=== PATIENT | male | born 1945 | race Caucasian/White ===

== ENCOUNTER 2017-07-19 17:53 | Inpatient (IN) | payer MEDICARE, BC ==
[~2017-07-19] VITALS: Ht 188 cm; Wt 93.2 kg
[2017-07-19] MEDS ORDERED: amiodarone 150mg/dext, iso-os 100 ML IV ONE (18:00)
[2017-07-19] MEDS ORDERED: LORazepam 2 mg/ml vial IV ONE (18:25)
[2017-07-19 18:38] LABS: BASOPHILS % (AUTO) 0.1 % (0-1); EOSINOPHILS # (AUTO) 0.1 X10'3 (0-0.9); EOSINOPHILS % (AUTO) 1.7 % (0-6); HEMATOCRIT 32.5 % (42.0-52.0); HEMOGLOBIN 11.1 g/dl (14.0-17.9); LYMPHOCYTES # (AUTO) 0.3 X10'3 (1.1-4.8); LYMPHOCYTES % (AUTO) 3.7 % (21-51); MEAN CORPUSCULAR HEMOGLOBIN 32.9 PG (27.0-31.0); MEAN CORPUSCULAR VOLUME 96.5 FL (78-98); MEAN PLATELET VOLUME 8.9 FL (7.4-10.4); MONOCYTES # (AUTO) 0.6 X10'3 (0-0.9); MONOCYTES % (AUTO) 6.9 % (2-12); NEUTROPHILS # (AUTO) 7.8 X10'3 (1.8-7.7); NEUTROPHILS % (AUTO) 87.6 % (42-75); PLATELET COUNT 223 X10'3 (140-440); RED BLOOD COUNT 3.36 X10'6 (4.70-6.10); RED CELL DISTRIBUTION WIDTH 15.8 % (11.5-14.5); WHITE BLOOD COUNT 8.9 X10'3 (4.5-11.0)
[2017-07-19] MEDS: amiodarone/D5 450MG/250ML BAG 250 ML IV SCH (18:43)
[2017-07-19 19:03] LABS: ALANINE AMINOTRANSFERASE 85 U/L (12-78); ALBUMIN 2.1 G/DL (3.4-5.0); ALBUMIN/GLOBULIN RATIO 0.5 (1.1-1.5); ALKALINE PHOSPHATASE 95 IU/L (46-116); ANION GAP 12 (8-16); ASPARTATE AMINO TRANSFERASE 83 U/L (10-37); BILIRUBIN,TOTAL 0.5 MG/DL (0.1-1.0); BLOOD UREA NITROGEN 66 MG/DL (7-18); BUN/CREATININE RATIO 33.3 (5.4-32.0); CALCIUM 7.7 MG/DL (8.5-10.1); CHLORIDE 101 MMOL/L (99-107); CREATINE KINASE 128 U/L (39-308); CREATININE 1.98 MG/DL (0.60-1.10); GLUCOSE 164 MG/DL (70-104); SODIUM 138 MMOL/L (135-145); TOTAL CARBON DIOXIDE 24.9 MMOL/L (24-32); TOTAL PROTEIN 6.2 G/DL (6.4-8.2); eGFR 33 ML/MIN
[2017-07-19 19:06] LABS: POTASSIUM 2.6 MMOL/L (3.5-5.1)
[2017-07-19] MEDS ORDERED: folic acid 1mg/0.2ml inj IV ONE (19:10)
[2017-07-19] MEDS ORDERED: potassium Cl oral solution 20 MEQ/15 ML PO ONE (19:10)
[2017-07-19] MEDS ORDERED: thiamine 100mg/ml 2ml inj. IV ONE (19:10)
[2017-07-19] MEDS ORDERED: digoxin 250mcg/ml 2ml ampule IV ONE (19:15)
[2017-07-19] MEDS ORDERED: mag hydrox/Alum hydrox/simeth 30ml oral suspension PO PRN (19:20)
[2017-07-19] MEDS ORDERED: acetaminophen 325mg tablet PO PRN (19:20)
[2017-07-19] MEDS ORDERED: ondansetron/PF 4mg/2ml inj IV PRN (19:20)
[2017-07-19] MEDS ORDERED: magnesium hydroxide 30ml (MOM) UD suspension PO PRN (19:20)
[2017-07-19] MEDS ORDERED: magnesium 2GM in 50ml NS 50 ML IV PRN (19:25)
[2017-07-19] MEDS ORDERED: potassium Cl 20 mEq SR tablet PO PRN (19:25)
[2017-07-19] MEDS ORDERED: potassium Cl 40MEQ/NS 500ml 500 ML IV PRN (19:25)
[2017-07-19 19:42] LABS: HEMOGLOBIN A1C 6.4 % (4.5-6.2)
[2017-07-19 20:36] LABS: MAGNESIUM 1.7 MG/DL (1.5-2.4)
[2017-07-19] MEDS ORDERED: magnesium 2GM in 50ml NS 50 ML IV ONE (20:55)
[2017-07-19] MEDS: potassium Cl 20mEq in NS 1,000 ML IV SCH (21:01)
[2017-07-19] MEDS: heparin, porcine 5000 units/ml vial SQ SCH (21:04)
[2017-07-20] VITALS (15 sets, daily range): BP systolic 104–152; BP diastolic 56–91
[2017-07-20] MEDS: amiodarone/D5 450MG/250ML BAG 250 ML IV SCH ×3 (00:53→19:11)
[2017-07-20] MEDS: potassium Cl 20 mEq SR tablet PO PRN ×4 (02:01→17:29)
[2017-07-20 06:11] LABS: BASOPHILS % (AUTO) 0 % (0-1); EOSINOPHILS % (AUTO) 0.1 % (0-6); HEMATOCRIT 33.6 % (42.0-52.0); HEMOGLOBIN 11.7 g/dl (14.0-17.9); LYMPHOCYTES # (AUTO) 0.1 X10'3 (1.1-4.8); LYMPHOCYTES % (AUTO) 1.1 % (21-51); MEAN CORPUSCULAR HEMOGLOBIN 33.6 PG (27.0-31.0); MEAN CORPUSCULAR HGB CONC 34.9 % (33.0-36.5); MEAN CORPUSCULAR VOLUME 96.3 FL (78-98); MEAN PLATELET VOLUME 9.5 FL (7.4-10.4); MONOCYTES # (AUTO) 0.2 X10'3 (0-0.9); MONOCYTES % (AUTO) 1.4 % (2-12); NEUTROPHILS # (AUTO) 12.3 X10'3 (1.8-7.7); NEUTROPHILS % (AUTO) 97.4 % (42-75); PLATELET COUNT 201 X10'3 (140-440); RED BLOOD COUNT 3.49 X10'6 (4.70-6.10); RED CELL DISTRIBUTION WIDTH 15.6 % (11.5-14.5); WHITE BLOOD COUNT 12.6 X10'3 (4.5-11.0)
[2017-07-20 06:22] LABS: ALANINE AMINOTRANSFERASE 81 U/L (12-78); ALBUMIN 2.1 G/DL (3.4-5.0); ALBUMIN/GLOBULIN RATIO 0.5 (1.1-1.5); ALKALINE PHOSPHATASE 116 IU/L (46-116); ANION GAP 12 (8-16); ASPARTATE AMINO TRANSFERASE 85 U/L (10-37); BILIRUBIN,TOTAL 0.6 MG/DL (0.1-1.0); BLOOD UREA NITROGEN 56 MG/DL (7-18); BUN/CREATININE RATIO 32.9 (5.4-32.0); CALCIUM 8.1 MG/DL (8.5-10.1); CHLORIDE 104 MMOL/L (99-107); CHOL/HDL RATIO 7.9 (0.00-4.99); CHOLESTEROL 79 MG/DL (0-200); GLUCOSE 157 MG/DL (70-104); HDL CHOLESTEROL 10 MG/DL (35-60); LDL CHOLESTEROL 51 MG/DL (50-100); MAGNESIUM 1.9 MG/DL (1.5-2.4); SODIUM 139 MMOL/L (135-145); TOTAL CARBON DIOXIDE 22.7 MMOL/L (24-32); TOTAL PROTEIN 6.4 G/DL (6.4-8.2); TRIGLYCERIDES 103 MG/DL (20-135); eGFR 40 ML/MIN
[2017-07-20 06:45] LABS: POTASSIUM 2.9 MMOL/L (3.5-5.1)
[2017-07-20 06:47] LABS: TOTAL CELLS COUNTED 100
[2017-07-20 06:48] LABS: BANDS% (MANUAL) 5 % (0-10); ELLIPTOCYTES FEW; LYMPHOCYTES % (MANUAL) 1 % (21-51); MONOCYTES % (MANUAL) 1 % (2-12); NEUTROPHILS % (MANUAL) 93 % (42-75); PLATELET ESTIMATE NORMAL
[2017-07-20 06:49] LABS: BURR CELLS 1+; TOXIC GRANULATION 2+; TOXIC VACUOLATION FEW
[2017-07-20 06:50] LABS: LARGE PLATELETS FEW
[2017-07-20] MEDS ORDERED: UNABLE TO OBTAIN (07:49)
[2017-07-20] MEDS: heparin, porcine 5000 units/ml vial SQ SCH ×2 (08:39→19:15)
[2017-07-20] MEDS: potassium Cl 20mEq in NS 1,000 ML IV SCH ×3 (09:00→23:01)
[2017-07-20] MEDS ORDERED: HYDR25TA4 PO (10:35)
[2017-07-20] MEDS ORDERED: LISI40TA4 PO (10:35)
[2017-07-20] MEDS ORDERED: ASPI81TA52 PO (10:35)
[2017-07-20] MEDS ORDERED: ATOR-2 PO (10:35)
[2017-07-20] MEDS ORDERED: METO25TA6 PO (10:35)
[2017-07-20] MEDS: aspirin 81mg tablet.DR PO SCH (12:57)
[2017-07-20] MEDS ORDERED: metoprolol tartrate 25mg tablet PO ONE (16:10)
[2017-07-20] MEDS ORDERED: magnesium 4gm in 100ml NS 100 ML IV PRN (17:50)
[2017-07-20] MEDS ORDERED: potassium Cl 40MEQ/NS 500ml 500 ML IV PRN ×2 (17:50)
[2017-07-20] MEDS ORDERED: magnesium Cl slow-release 64mg tablet PO PRN (17:50)
[2017-07-20] MEDS ORDERED: potassium Cl 20 mEq SR tablet PO PRN ×2 (17:50)
[2017-07-20] MEDS ORDERED: magnesium 2GM in 50ml NS 50 ML IV PRN (17:50)
[2017-07-20] MEDS: lisinopril 20mg tablet PO SCH (19:12)
[2017-07-20] MEDS: metoprolol tartrate 25mg tablet PO SCH (19:12)
[2017-07-20] MEDS ORDERED: metoprolol tartrate 25mg tablet PO SCH (20:00)
[2017-07-21] VITALS (10 sets, daily range): BP systolic 113–154; BP diastolic 58–109
[2017-07-21 05:17] LABS: BASOPHILS % (AUTO) 0.1 % (0-1); EOSINOPHILS # (AUTO) 0.2 X10'3 (0-0.9); EOSINOPHILS % (AUTO) 2.4 % (0-6); HEMATOCRIT 31.9 % (42.0-52.0); HEMOGLOBIN 10.8 g/dl (14.0-17.9); LYMPHOCYTES # (AUTO) 0.5 X10'3 (1.1-4.8); LYMPHOCYTES % (AUTO) 4.7 % (21-51); MEAN CORPUSCULAR HEMOGLOBIN 32.9 PG (27.0-31.0); MEAN CORPUSCULAR HGB CONC 33.8 % (33.0-36.5); MEAN CORPUSCULAR VOLUME 97.3 FL (78-98); MEAN PLATELET VOLUME 9.2 FL (7.4-10.4); MONOCYTES # (AUTO) 0.6 X10'3 (0-0.9); NEUTROPHILS # (AUTO) 8.7 X10'3 (1.8-7.7); NEUTROPHILS % (AUTO) 86.8 % (42-75); PLATELET COUNT 207 X10'3 (140-440); RED BLOOD COUNT 3.28 X10'6 (4.70-6.10); RED CELL DISTRIBUTION WIDTH 16.2 % (11.5-14.5)
[2017-07-21 05:41] LABS: ALANINE AMINOTRANSFERASE 87 U/L (12-78); ALBUMIN/GLOBULIN RATIO 0.5 (1.1-1.5); ALKALINE PHOSPHATASE 101 IU/L (46-116); ANION GAP 8 (8-16); ASPARTATE AMINO TRANSFERASE 75 U/L (10-37); BILIRUBIN,TOTAL 0.6 MG/DL (0.1-1.0); BLOOD UREA NITROGEN 42 MG/DL (7-18); BUN/CREATININE RATIO 32.3 (5.4-32.0); CALCIUM 7.3 MG/DL (8.5-10.1); CHLORIDE 106 MMOL/L (99-107); GLUCOSE 152 MG/DL (70-104); MAGNESIUM 1.8 MG/DL (1.5-2.4); POTASSIUM 4.1 MMOL/L (3.5-5.1); SODIUM 139 MMOL/L (135-145); TOTAL CARBON DIOXIDE 24.9 MMOL/L (24-32); eGFR 54 ML/MIN
[2017-07-21] MEDS: K and/or MAG REPLACEMENT MC SCH (06:56)
[2017-07-21] MEDS: aspirin 81mg tablet.DR PO SCH (09:21)
[2017-07-21] MEDS: atorvastatin 20mg tablet PO SCH (09:22)
[2017-07-21] MEDS: lisinopril 20mg tablet PO SCH ×2 (09:23→19:52)
[2017-07-21] MEDS: metoprolol tartrate 25mg tablet PO SCH ×2 (09:23→19:52)
[2017-07-21] MEDS: heparin, porcine 5000 units/ml vial SQ SCH ×2 (09:24→19:54)
[2017-07-21] MEDS: potassium Cl 20mEq in NS 1,000 ML IV SCH ×2 (09:29→19:54)
[2017-07-21] MEDS: amiodarone/D5 450MG/250ML BAG 250 ML IV SCH (09:30)
[2017-07-21] MEDS ORDERED: pneumococcal 23-VAL P-sac vacc 25 mcg/0.5ml vial IMVAC ONE (10:00)
[2017-07-22 03:00] VITALS: BP 124/84
[2017-07-22 05:16] LABS: BASOPHILS % (AUTO) 0 % (0-1); EOSINOPHILS # (AUTO) 0.2 X10'3 (0-0.9); EOSINOPHILS % (AUTO) 2.5 % (0-6); HEMATOCRIT 32.8 % (42.0-52.0); HEMOGLOBIN 11.3 g/dl (14.0-17.9); LYMPHOCYTES # (AUTO) 0.5 X10'3 (1.1-4.8); LYMPHOCYTES % (AUTO) 5.5 % (21-51); MEAN CORPUSCULAR HEMOGLOBIN 33.3 PG (27.0-31.0); MEAN CORPUSCULAR HGB CONC 34.5 % (33.0-36.5); MEAN CORPUSCULAR VOLUME 96.5 FL (78-98); MEAN PLATELET VOLUME 8.9 FL (7.4-10.4); MONOCYTES # (AUTO) 0.5 X10'3 (0-0.9); MONOCYTES % (AUTO) 5.2 % (2-12); NEUTROPHILS % (AUTO) 86.8 % (42-75); PLATELET COUNT 230 X10'3 (140-440); RED CELL DISTRIBUTION WIDTH 15.9 % (11.5-14.5); WHITE BLOOD COUNT 9.2 X10'3 (4.5-11.0)
[2017-07-22 05:39] LABS: ALANINE AMINOTRANSFERASE 87 U/L (12-78); ALBUMIN/GLOBULIN RATIO 0.5 (1.1-1.5); ALKALINE PHOSPHATASE 127 IU/L (46-116); ANION GAP 8 (8-16); ASPARTATE AMINO TRANSFERASE 73 U/L (10-37); BILIRUBIN,TOTAL 0.7 MG/DL (0.1-1.0); BLOOD UREA NITROGEN 27 MG/DL (7-18); BUN/CREATININE RATIO 24.5 (5.4-32.0); CALCIUM 7.4 MG/DL (8.5-10.1); CHLORIDE 107 MMOL/L (99-107); GLUCOSE 139 MG/DL (70-104); MAGNESIUM 1.7 MG/DL (1.5-2.4); POTASSIUM 4.5 MMOL/L (3.5-5.1); SODIUM 139 MMOL/L (135-145); TOTAL CARBON DIOXIDE 24.4 MMOL/L (24-32); TOTAL PROTEIN 6.1 G/DL (6.4-8.2); eGFR 66 ML/MIN
[2017-07-22] MEDS: potassium Cl 20mEq in NS 1,000 ML IV SCH (05:45)
[2017-07-22 07:00] VITALS: BP 159/127
[2017-07-22] MEDS: aspirin 81mg tablet.DR PO SCH (07:56)
[2017-07-22] MEDS: heparin, porcine 5000 units/ml vial SQ SCH ×2 (07:56→19:26)
[2017-07-22] MEDS: atorvastatin 20mg tablet PO SCH (07:56)
[2017-07-22] MEDS: lisinopril 20mg tablet PO SCH ×2 (07:56→19:24)
[2017-07-22] MEDS: metoprolol tartrate 25mg tablet PO SCH ×2 (07:56→19:22)
[2017-07-22] MEDS: K and/or MAG REPLACEMENT MC SCH (08:00)
[2017-07-22] MEDS: amiodarone 200mg tablet PO SCH ×2 (09:14→19:23)
[2017-07-22] MEDS: normal saline 1000ml 1,000 ML IV SCH ×2 (09:43→19:27)
[2017-07-22 11:00] VITALS: BP 173/53
[2017-07-22 15:00] VITALS: BP 152/68
[2017-07-22 19:00] VITALS: BP 147/99
[2017-07-22 23:00] VITALS: BP 145/85
[2017-07-23] MEDS: loperamide 2mg capsule PO PRN (02:37)
[2017-07-23 03:00] VITALS: BP 140/99
[2017-07-23] MEDS: normal saline 1000ml 1,000 ML IV SCH ×2 (05:25→15:25)
[2017-07-23 05:31] LABS: BASOPHILS % (AUTO) 0 % (0-1); EOSINOPHILS # (AUTO) 0.1 X10'3 (0-0.9); EOSINOPHILS % (AUTO) 0.8 % (0-6); HEMATOCRIT 32.7 % (42.0-52.0); HEMOGLOBIN 11.2 g/dl (14.0-17.9); LYMPHOCYTES # (AUTO) 0.5 X10'3 (1.1-4.8); LYMPHOCYTES % (AUTO) 6.3 % (21-51); MEAN CORPUSCULAR HEMOGLOBIN 33.2 PG (27.0-31.0); MEAN CORPUSCULAR HGB CONC 34.2 % (33.0-36.5); MEAN CORPUSCULAR VOLUME 96.9 FL (78-98); MEAN PLATELET VOLUME 9.1 FL (7.4-10.4); MONOCYTES # (AUTO) 0.5 X10'3 (0-0.9); MONOCYTES % (AUTO) 6.1 % (2-12); NEUTROPHILS # (AUTO) 6.6 X10'3 (1.8-7.7); NEUTROPHILS % (AUTO) 86.8 % (42-75); PLATELET COUNT 233 X10'3 (140-440); RED BLOOD COUNT 3.38 X10'6 (4.70-6.10); WHITE BLOOD COUNT 7.6 X10'3 (4.5-11.0)
[2017-07-23 05:51] LABS: ALANINE AMINOTRANSFERASE 84 U/L (12-78); ALBUMIN/GLOBULIN RATIO 0.5 (1.1-1.5); ALKALINE PHOSPHATASE 162 IU/L (46-116); ANION GAP 8 (8-16); ASPARTATE AMINO TRANSFERASE 67 U/L (10-37); BILIRUBIN,TOTAL 0.9 MG/DL (0.1-1.0); BLOOD UREA NITROGEN 21 MG/DL (7-18); BUN/CREATININE RATIO 17.4 (5.4-32.0); CHLORIDE 107 MMOL/L (99-107); CREATININE 1.21 MG/DL (0.60-1.10); GLUCOSE 121 MG/DL (70-104); MAGNESIUM 1.4 MG/DL (1.5-2.4); POTASSIUM 4.4 MMOL/L (3.5-5.1); SODIUM 139 MMOL/L (135-145); TOTAL CARBON DIOXIDE 24.1 MMOL/L (24-32); eGFR 59 ML/MIN
[2017-07-23 06:35] VITALS: BP 142/94
[2017-07-23] MEDS: K and/or MAG REPLACEMENT MC SCH (07:16)
[2017-07-23] MEDS: heparin, porcine 5000 units/ml vial SQ SCH ×2 (07:24→19:32)
[2017-07-23] MEDS: atorvastatin 20mg tablet PO SCH (07:25)
[2017-07-23] MEDS: amiodarone 200mg tablet PO SCH ×2 (07:25→19:31)
[2017-07-23] MEDS: aspirin 81mg tablet.DR PO SCH (07:26)
[2017-07-23] MEDS: lisinopril 20mg tablet PO SCH ×2 (07:39→19:29)
[2017-07-23] MEDS: metoprolol tartrate 25mg tablet PO SCH ×2 (07:40→19:30)
[2017-07-23 11:00] VITALS: BP 149/89
[2017-07-23] MEDS ORDERED: furosemide 40mg/4ml inj IV ONE (12:25)
[2017-07-23 15:00] VITALS: BP 150/95
[2017-07-23] MEDS ORDERED: magnesium 2GM in 50ml NS 50 ML IV ONE (16:05)
[2017-07-23 19:00] VITALS: BP 143/90
[2017-07-23] MEDS ORDERED: magnesium Cl slow-release 64mg tablet PO PRN (19:10)
[2017-07-23] MEDS: furosemide 40mg/4ml inj IV SCH (19:29)
[2017-07-23 23:00] VITALS: BP 142/95
[2017-07-24] MEDS: loperamide 2mg capsule PO PRN (02:25)
[2017-07-24 03:00] VITALS: BP 146/102
[2017-07-24 06:00] VITALS: BP 154/92
[2017-07-24 07:23] LABS: BASOPHILS % (AUTO) 0.3 % (0-1); EOSINOPHILS # (AUTO) 0.2 X10'3 (0-0.9); EOSINOPHILS % (AUTO) 2.2 % (0-6); HEMATOCRIT 33.3 % (42.0-52.0); HEMOGLOBIN 11.7 g/dl (14.0-17.9); LYMPHOCYTES # (AUTO) 0.7 X10'3 (1.1-4.8); LYMPHOCYTES % (AUTO) 9.7 % (21-51); MEAN CORPUSCULAR HEMOGLOBIN 33.4 PG (27.0-31.0); MEAN CORPUSCULAR VOLUME 95.4 FL (78-98); MEAN PLATELET VOLUME 9.7 FL (7.4-10.4); MONOCYTES # (AUTO) 0.5 X10'3 (0-0.9); MONOCYTES % (AUTO) 7.2 % (2-12); NEUTROPHILS % (AUTO) 80.6 % (42-75); PLATELET COUNT 224 X10'3 (140-440); RED BLOOD COUNT 3.49 X10'6 (4.70-6.10); RED CELL DISTRIBUTION WIDTH 15.9 % (11.5-14.5); WHITE BLOOD COUNT 7.5 X10'3 (4.5-11.0)
[2017-07-24 07:26] LABS: ALANINE AMINOTRANSFERASE 82 U/L (12-78); ALBUMIN/GLOBULIN RATIO 0.5 (1.1-1.5); ALKALINE PHOSPHATASE 180 IU/L (46-116); ANION GAP 11 (8-16); ASPARTATE AMINO TRANSFERASE 65 U/L (10-37); BILIRUBIN,TOTAL 0.8 MG/DL (0.1-1.0); BLOOD UREA NITROGEN 19 MG/DL (7-18); CALCIUM 7.3 MG/DL (8.5-10.1); CHLORIDE 105 MMOL/L (99-107); CREATININE 1.19 MG/DL (0.60-1.10); GLUCOSE 124 MG/DL (70-104); MAGNESIUM 1.7 MG/DL (1.5-2.4); POTASSIUM 3.9 MMOL/L (3.5-5.1); SODIUM 136 MMOL/L (135-145); TOTAL CARBON DIOXIDE 19.9 MMOL/L (24-32); TOTAL PROTEIN 6.2 G/DL (6.4-8.2); eGFR 60 ML/MIN
[2017-07-24] MEDS: furosemide 40mg/4ml inj IV SCH (07:41)
[2017-07-24] MEDS: amiodarone 200mg tablet PO SCH (07:43)
[2017-07-24] MEDS: metoprolol tartrate 25mg tablet PO SCH (07:43)
[2017-07-24] MEDS: atorvastatin 20mg tablet PO SCH (07:44)
[2017-07-24] MEDS: lisinopril 20mg tablet PO SCH (07:45)
[2017-07-24] MEDS: aspirin 81mg tablet.DR PO SCH (07:46)
[2017-07-24] MEDS: heparin, porcine 5000 units/ml vial SQ SCH (07:46)
[2017-07-24] MEDS: diltiazem 30mg tablet PO SCH ×2 (09:24→14:46)
[2017-07-24 11:00] VITALS: BP 131/77
== END 2017-07-24 15:25 | DRG 682 ==
LOC: ER 17:54 → ED HOLD 19:20 → PCU 3S 07-20 00:32
PROVIDERS: ADMIT Internal Medicine; ATTEND Family Medicine
DX: N17.9 Acute kidney failure, unspecified (principal); G93.40 Encephalopathy, unspecified; J81.1 Chronic pulmonary edema; E87.2 Acidosis; I48.91 Unspecified atrial fibrillation; D64.9 Anemia, unspecified; E86.0 Dehydration; E87.6 Hypokalemia; I12.9 Hypertensive chronic kidney disease with stage 1 through stage 4 chronic kidney disease, or unspecified chronic kidney disease; I25.10 Atherosclerotic heart disease of native coronary artery without angina pectoris; N18.9 Chronic kidney disease, unspecified; F10.20 Alcohol dependence, uncomplicated; Z60.2 Problems related to living alone; Z95.1 Presence of aortocoronary bypass graft; Z28.21 Immunization not carried out because of patient refusal
CPT/HCPCS: 36415; 80053; 80061; 82550; 83036; 83735; 83880; 84132; 84443; 85025; 87070; 90732; 93005; 93306; 96365; 96375; 97110; 97116; 97162; 97530; 99291; 99292; A4649; A6212; A6213; A6250; A9270; J0282; J1160; J1644; J1940; J2060; J3411; J3475; J3490; J7030

== ENCOUNTER 2017-07-30 12:33 | Inpatient (IN) | payer MEDICARE, BC ==
[~2017-07-30] VITALS: Ht 182.9 cm; Wt 100.0 kg
[~2017-07-30 12:33] MED LIST: ASPI81TA52 PO; ATOR-2 PO; DOPamine/D5W 400mg/250ml bag IV ONE; HYDR25TA4 PO; LISI40TA4 PO; METO25TA6 PO; NORepinephrine 1 mg/ml inj IV ONE; sod chloride 0.9% 10ml flush syringe IV ONE
[2017-07-30] MEDS ORDERED: MORPHINE 2MG in 2ml NS syringe IV PRN ×2 (12:40→15:05)
[2017-07-30] MEDS ORDERED: MORPHINE 2MG in 2ml NS syringe ONE (12:44)
[2017-07-30] MEDS ORDERED: ISOPROTERENOL IV ONE (13:05)
[2017-07-30] MEDS ORDERED: NORMAL SALINE IV ONE (13:05)
[2017-07-30] MEDS ORDERED: CEFAZOLIN IV ONE (13:05)
[2017-07-30] MEDS ORDERED: [UNRECOGNIZED DRUG - OTHER] IV ONE (13:05)
[2017-07-30] MEDS ORDERED: ceFAZolin 1000mg inj ONE ×2 (13:06→13:11)
[2017-07-30] MEDS ORDERED: fentaNYL/PF 50MCG/1 ML 2ML syringe ONE ×2 (13:06→13:10)
[2017-07-30] MEDS ORDERED: midazolam 2 mg/2 ml injection ONE ×2 (13:06→13:10)
[2017-07-30 13:24] LABS: BASOPHILS # (AUTO) 0.1 X10'3 (0-0.2); BASOPHILS % (AUTO) 0.5 % (0-1); EOSINOPHILS # (AUTO) 0.3 X10'3 (0-0.9); EOSINOPHILS % (AUTO) 3.1 % (0-6); HEMATOCRIT 34.4 % (42.0-52.0); HEMOGLOBIN 11.6 g/dl (14.0-17.9); LYMPHOCYTES # (AUTO) 1.5 X10'3 (1.1-4.8); LYMPHOCYTES % (AUTO) 13.2 % (21-51); MEAN CORPUSCULAR HEMOGLOBIN 32.6 PG (27.0-31.0); MEAN CORPUSCULAR HGB CONC 33.8 % (33.0-36.5); MEAN CORPUSCULAR VOLUME 96.3 FL (78-98); MEAN PLATELET VOLUME 9.8 FL (7.4-10.4); MONOCYTES # (AUTO) 0.4 X10'3 (0-0.9); MONOCYTES % (AUTO) 3.7 % (2-12); NEUTROPHILS # (AUTO) 8.8 X10'3 (1.8-7.7); NEUTROPHILS % (AUTO) 79.5 % (42-75); PLATELET COUNT 399 X10'3 (140-440); RED BLOOD COUNT 3.57 X10'6 (4.70-6.10); RED CELL DISTRIBUTION WIDTH 16.2 % (11.5-14.5); WHITE BLOOD COUNT 11.1 X10'3 (4.5-11.0)
[2017-07-30 13:41] LABS: ALANINE AMINOTRANSFERASE 59 U/L (12-78); ALBUMIN 2.4 G/DL (3.4-5.0); ALBUMIN/GLOBULIN RATIO 0.6 (1.1-1.5); ALKALINE PHOSPHATASE 137 IU/L (46-116); ANION GAP 13 (8-16); ASPARTATE AMINO TRANSFERASE 48 U/L (10-37); BILIRUBIN,TOTAL 0.9 MG/DL (0.1-1.0); BLOOD UREA NITROGEN 19 MG/DL (7-18); CALCIUM 8.4 MG/DL (8.5-10.1); CHLORIDE 99 MMOL/L (99-107); GLUCOSE 254 MG/DL (70-104); SODIUM 134 MMOL/L (135-145); TOTAL CARBON DIOXIDE 22.3 MMOL/L (24-32); TOTAL PROTEIN 6.3 G/DL (6.4-8.2); eGFR 35 ML/MIN
[2017-07-30 13:43] LABS: POTASSIUM 6.1 MMOL/L (3.5-5.1)
[2017-07-30] MEDS ORDERED: dextrose 50%-water 50ml dispensing syringe IV ONE (14:00)
[2017-07-30] MEDS ORDERED: sodium bicarbonate (0.9mEq/ml) 44.6 mEq/50ml syringe IV ONE (14:00)
[2017-07-30] MEDS ORDERED: calcium chloride 100 MG/1 ML inj IV ONE (14:00)
[2017-07-30] MEDS ORDERED: insulin regular, human 10 units/0.1 ml syringe IV ONE (14:00)
[2017-07-30] MEDS ORDERED: sodium bicarbonate (8.4%) 1 mEq/ml syringe IV ONE ×2 (14:05→14:25)
[2017-07-30] MEDS ORDERED: potassium Cl 20 mEq SR tablet PO PRN (15:05)
[2017-07-30] MEDS ORDERED: acetaminophen 325mg tablet PO PRN (15:05)
[2017-07-30] MEDS ORDERED: ondansetron/PF 4mg/2ml inj IV PRN (15:05)
[2017-07-30] MEDS ORDERED: potassium Cl 40MEQ/NS 500ml 500 ML IV PRN ×2 (15:05)
[2017-07-30] MEDS ORDERED: AMIO200T57 PO (15:51)
[2017-07-30] MEDS ORDERED: DILT180C10 (15:51)
[2017-07-30] MEDS ORDERED: FURO80TA87 PO (15:51)
[2017-07-30] MEDS ORDERED: POTA10CA44 PO (16:00)
[2017-07-30] MEDS ORDERED: MAGN400C PO (16:00)
[2017-07-30] MEDS ORDERED: RIVA20TA PO (16:00)
[2017-07-30 17:50] LABS: POTASSIUM 4.5 MMOL/L (3.5-5.1)
[2017-07-30 18:23] VITALS: BP 156/85
[2017-07-30 19:00] VITALS: BP 152/67
[2017-07-30] MEDS: normal saline 1000ml 1,000 ML IV SCH (19:13)
[2017-07-30] MEDS: DOPamine 400mg/D5W 250ml 250 ML IV PRN (19:17)
[2017-07-30] MEDS ORDERED: morphine 4 MG/ML inj SYRINge IV PRN ×2 (19:36→19:37)
[2017-07-30 20:00] VITALS: BP 139/80
[2017-07-30] MEDS: docusate sod 100mg capsule PO SCH (20:26)
[2017-07-30 21:00] VITALS: BP 138/77
[2017-07-30 22:00] VITALS: BP 122/76
[2017-07-30 23:00] VITALS: BP 144/67
[2017-07-31] VITALS (20 sets, daily range): BP systolic 117–158; BP diastolic 61–92
[2017-07-31 06:06] LABS: BASOPHILS % (AUTO) 0.2 % (0-1); EOSINOPHILS # (AUTO) 0.2 X10'3 (0-0.9); HEMOGLOBIN 11.7 g/dl (14.0-17.9); LYMPHOCYTES % (AUTO) 12.2 % (21-51); MEAN CORPUSCULAR HEMOGLOBIN 32.6 PG (27.0-31.0); MEAN CORPUSCULAR HGB CONC 34.5 % (33.0-36.5); MEAN CORPUSCULAR VOLUME 94.6 FL (78-98); MEAN PLATELET VOLUME 8.8 FL (7.4-10.4); MONOCYTES # (AUTO) 0.4 X10'3 (0-0.9); MONOCYTES % (AUTO) 4.9 % (2-12); NEUTROPHILS # (AUTO) 6.6 X10'3 (1.8-7.7); NEUTROPHILS % (AUTO) 80.7 % (42-75); PLATELET COUNT 276 X10'3 (140-440); WHITE BLOOD COUNT 8.2 X10'3 (4.5-11.0)
[2017-07-31 06:37] LABS: ALANINE AMINOTRANSFERASE 131 U/L (12-78); ALBUMIN 2.7 G/DL (3.4-5.0); ALBUMIN/GLOBULIN RATIO 0.7 (1.1-1.5); ALKALINE PHOSPHATASE 159 IU/L (46-116); ANION GAP 10 (8-16); ASPARTATE AMINO TRANSFERASE 86 U/L (10-37); BILIRUBIN,TOTAL 0.7 MG/DL (0.1-1.0); BLOOD UREA NITROGEN 20 MG/DL (7-18); BUN/CREATININE RATIO 12.3 (5.4-32.0); CALCIUM 8.9 MG/DL (8.5-10.1); CHLORIDE 101 MMOL/L (99-107); CREATININE 1.62 MG/DL (0.60-1.10); GLUCOSE 104 MG/DL (70-104); MAGNESIUM 2.1 MG/DL (1.5-2.4); PHOSPHORUS 4.4 MG/DL (2.3-4.5); POTASSIUM 4.2 MMOL/L (3.5-5.1); SODIUM 137 MMOL/L (135-145); TOTAL CARBON DIOXIDE 25.8 MMOL/L (24-32); TOTAL PROTEIN 6.8 G/DL (6.4-8.2); TROPONIN I < 0.04 NG/ML (0.0-0.05); eGFR 42 ML/MIN
[2017-07-31] MEDS: docusate sod 100mg capsule PO SCH ×2 (07:29→19:43)
[2017-07-31] MEDS: normal saline 1000ml 1,000 ML IV SCH (07:30)
[2017-07-31] MEDS: DOPamine 400mg/D5W 250ml 250 ML IV PRN (10:48)
[2017-07-31] MEDS: rivaroxaban 20mg tablet PO SCH (16:06)
[2017-08-01] VITALS (9 sets, daily range): BP systolic 125–189; BP diastolic 73–103
[2017-08-01 05:30] LABS: BASOPHILS % (AUTO) 0.3 % (0-1); EOSINOPHILS # (AUTO) 0.1 X10'3 (0-0.9); EOSINOPHILS % (AUTO) 1.9 % (0-6); HEMOGLOBIN 11.4 g/dl (14.0-17.9); LYMPHOCYTES # (AUTO) 0.6 X10'3 (1.1-4.8); LYMPHOCYTES % (AUTO) 7.7 % (21-51); MEAN CORPUSCULAR HEMOGLOBIN 32.5 PG (27.0-31.0); MEAN CORPUSCULAR HGB CONC 34.4 % (33.0-36.5); MEAN CORPUSCULAR VOLUME 94.4 FL (78-98); MEAN PLATELET VOLUME 8.9 FL (7.4-10.4); MONOCYTES # (AUTO) 0.3 X10'3 (0-0.9); MONOCYTES % (AUTO) 4.5 % (2-12); NEUTROPHILS # (AUTO) 6.3 X10'3 (1.8-7.7); NEUTROPHILS % (AUTO) 85.6 % (42-75); PLATELET COUNT 249 X10'3 (140-440); RED BLOOD COUNT 3.49 X10'6 (4.70-6.10); RED CELL DISTRIBUTION WIDTH 15.7 % (11.5-14.5); WHITE BLOOD COUNT 7.3 X10'3 (4.5-11.0)
[2017-08-01 06:07] LABS: ALANINE AMINOTRANSFERASE 91 U/L (12-78); ALBUMIN 2.5 G/DL (3.4-5.0); ALBUMIN/GLOBULIN RATIO 0.6 (1.1-1.5); ALKALINE PHOSPHATASE 138 IU/L (46-116); ANION GAP 12 (8-16); ASPARTATE AMINO TRANSFERASE 45 U/L (10-37); BILIRUBIN,TOTAL 0.6 MG/DL (0.1-1.0); BLOOD UREA NITROGEN 19 MG/DL (7-18); BUN/CREATININE RATIO 12.6 (5.4-32.0); CALCIUM 8.5 MG/DL (8.5-10.1); CHLORIDE 100 MMOL/L (99-107); CREATININE 1.51 MG/DL (0.60-1.10); GLUCOSE 111 MG/DL (70-104); MAGNESIUM 1.9 MG/DL (1.5-2.4); PHOSPHORUS 3.1 MG/DL (2.3-4.5); POTASSIUM 4.1 MMOL/L (3.5-5.1); SODIUM 136 MMOL/L (135-145); TOTAL CARBON DIOXIDE 24.5 MMOL/L (24-32); TOTAL PROTEIN 6.4 G/DL (6.4-8.2); eGFR 46 ML/MIN
[2017-08-01] MEDS: rivaroxaban 20mg tablet PO SCH (08:19)
[2017-08-01] MEDS: docusate sod 100mg capsule PO SCH ×2 (08:19→19:36)
[2017-08-01] MEDS: acetaminophen 325mg tablet PO PRN ×2 (14:17→20:34)
[2017-08-01] MEDS: vancomycin inj 1,250 MG in normal saline 250ml IV soln 250 ML IV SCH (15:53)
[2017-08-01 16:01] LABS: CLARITY,URINE CLOUDY (Clear); COLOR,URINE YELLOW (Yellow); GLUCOSE, URINE NEGATIVE (Neg); KETONES,URINE NEGATIVE (Neg); LEUKOCYTE ESTERASE ,URINE NEGATIVE (Neg); NITRITES, URINE NEGATIVE (Neg); OCCULT BLOOD,URINE LARGE (Neg); PH,URINE 6.5 (4.8-8.0); PROTEIN,URINE TRACE mg/dl (Neg)
[2017-08-01 16:02] LABS: UA COLLECTION TYPE CLN CATCH MIDSTREAM
[2017-08-01 16:11] LABS: BACTERIA,URINE NONE SEEN /HPF (Neg); RBC,URINE TNTC /HPF (0-2); SQUAMOUS EPITHELIAL CELL,UR NONE SEEN /LPF (FEW); TRANSITIONAL EPI CELLS,URINE FEW /HPF; WBC,URINE 0-4 /HPF (0-4)
[2017-08-01] MEDS: piperacillin/tazo 3.375gm/50ml 50 ML IV SCH (17:32)
[2017-08-01] MEDS: metoprolol tartrate 12.5mg (1/2 tablet) PO SCH (19:36)
[2017-08-01] MEDS ORDERED: vancomycin/NS 1 GM ADD-VANTAGE 250 ML IV SCH (20:00)
[2017-08-02] MEDS: piperacillin/tazo 3.375gm/50ml 50 ML IV SCH ×3 (00:58→16:00)
[2017-08-02] MEDS: vancomycin inj 1,250 MG in normal saline 250ml IV soln 250 ML IV SCH ×2 (03:16→14:31)
[2017-08-02 04:00] VITALS: BP 140/64
[2017-08-02 05:08] LABS: BASOPHILS % (AUTO) 0 % (0-1); EOSINOPHILS % (AUTO) 0.5 % (0-6); HEMATOCRIT 31.9 % (42.0-52.0); HEMOGLOBIN 11.1 g/dl (14.0-17.9); LYMPHOCYTES # (AUTO) 0.1 X10'3 (1.1-4.8); LYMPHOCYTES % (AUTO) 1.7 % (21-51); MEAN CORPUSCULAR HEMOGLOBIN 32.7 PG (27.0-31.0); MEAN CORPUSCULAR HGB CONC 34.6 % (33.0-36.5); MEAN CORPUSCULAR VOLUME 94.5 FL (78-98); MEAN PLATELET VOLUME 8.6 FL (7.4-10.4); MONOCYTES # (AUTO) 0.3 X10'3 (0-0.9); MONOCYTES % (AUTO) 3.1 % (2-12); NEUTROPHILS % (AUTO) 94.7 % (42-75); PLATELET COUNT 184 X10'3 (140-440); RED BLOOD COUNT 3.38 X10'6 (4.70-6.10); RED CELL DISTRIBUTION WIDTH 16.2 % (11.5-14.5); WHITE BLOOD COUNT 8.5 X10'3 (4.5-11.0)
[2017-08-02 05:54] LABS: ALANINE AMINOTRANSFERASE 63 U/L (12-78); ALBUMIN 2.3 G/DL (3.4-5.0); ALBUMIN/GLOBULIN RATIO 0.6 (1.1-1.5); ALKALINE PHOSPHATASE 123 IU/L (46-116); ANION GAP 9 (8-16); ASPARTATE AMINO TRANSFERASE 33 U/L (10-37); BLOOD UREA NITROGEN 17 MG/DL (7-18); BUN/CREATININE RATIO 11.5 (5.4-32.0); CALCIUM 8.1 MG/DL (8.5-10.1); CHLORIDE 99 MMOL/L (99-107); CREATININE 1.48 MG/DL (0.60-1.10); GLUCOSE 128 MG/DL (70-104); MAGNESIUM 1.7 MG/DL (1.5-2.4); PHOSPHORUS 3.1 MG/DL (2.3-4.5); POTASSIUM 3.7 MMOL/L (3.5-5.1); SODIUM 135 MMOL/L (135-145); TOTAL CARBON DIOXIDE 27.1 MMOL/L (24-32); TOTAL PROTEIN 6.2 G/DL (6.4-8.2); eGFR 47 ML/MIN
[2017-08-02 06:30] VITALS: BP 151/78
[2017-08-02] MEDS: docusate sod 100mg capsule PO SCH ×2 (07:21→19:56)
[2017-08-02] MEDS: rivaroxaban 20mg tablet PO SCH (07:21)
[2017-08-02] MEDS: metoprolol tartrate 12.5mg (1/2 tablet) PO SCH ×2 (07:21→19:56)
[2017-08-02 11:00] VITALS: BP 130/82
[2017-08-02 15:00] VITALS: BP 137/74
[2017-08-02 18:00] VITALS: BP 131/80
[2017-08-02] MEDS: lactobacillus rhamnosus 10,000 MMU CELLS/CAPSULE PO SCH (19:56)
[2017-08-02 22:00] VITALS: BP 159/76
[2017-08-03] MEDS: piperacillin/tazo 3.375gm/50ml 50 ML IV SCH ×2 (00:11→07:24)
[2017-08-03 02:00] VITALS: BP 159/81
[2017-08-03] MEDS ORDERED: VANCOMYCIN LEVEL IV NR (02:30)
[2017-08-03 02:46] LABS: BASOPHILS % (AUTO) 0 % (0-1); EOSINOPHILS # (AUTO) 0.1 X10'3 (0-0.9); EOSINOPHILS % (AUTO) 2.8 % (0-6); HEMATOCRIT 30.7 % (42.0-52.0); HEMOGLOBIN 10.5 g/dl (14.0-17.9); LYMPHOCYTES # (AUTO) 0.3 X10'3 (1.1-4.8); MEAN CORPUSCULAR HEMOGLOBIN 32.4 PG (27.0-31.0); MEAN CORPUSCULAR HGB CONC 34.2 % (33.0-36.5); MEAN CORPUSCULAR VOLUME 94.7 FL (78-98); MEAN PLATELET VOLUME 8.2 FL (7.4-10.4); MONOCYTES # (AUTO) 0.2 X10'3 (0-0.9); MONOCYTES % (AUTO) 5.5 % (2-12); NEUTROPHILS # (AUTO) 3.8 X10'3 (1.8-7.7); NEUTROPHILS % (AUTO) 85.7 % (42-75); PLATELET COUNT 160 X10'3 (140-440); RED BLOOD COUNT 3.25 X10'6 (4.70-6.10); RED CELL DISTRIBUTION WIDTH 15.9 % (11.5-14.5); WHITE BLOOD COUNT 4.4 X10'3 (4.5-11.0)
[2017-08-03 03:02] LABS: ALANINE AMINOTRANSFERASE 57 U/L (12-78); ALBUMIN 2.1 G/DL (3.4-5.0); ALBUMIN/GLOBULIN RATIO 0.6 (1.1-1.5); ALKALINE PHOSPHATASE 102 IU/L (46-116); ANION GAP 8 (8-16); ASPARTATE AMINO TRANSFERASE 37 U/L (10-37); BILIRUBIN,TOTAL 0.8 MG/DL (0.1-1.0); BLOOD UREA NITROGEN 14 MG/DL (7-18); BUN/CREATININE RATIO 11.3 (5.4-32.0); CALCIUM 7.9 MG/DL (8.5-10.1); CHLORIDE 99 MMOL/L (99-107); CREATININE 1.24 MG/DL (0.60-1.10); GLUCOSE 121 MG/DL (70-104); MAGNESIUM 1.8 MG/DL (1.5-2.4); PHOSPHORUS 3.2 MG/DL (2.3-4.5); POTASSIUM 3.4 MMOL/L (3.5-5.1); SODIUM 133 MMOL/L (135-145); TOTAL CARBON DIOXIDE 26.4 MMOL/L (24-32); TOTAL PROTEIN 5.9 G/DL (6.4-8.2); VANCOMYCIN,TROUGH 14.7 UG/ML (6.0-14.0); eGFR 57 ML/MIN
[2017-08-03] MEDS: vancomycin inj 1,250 MG in normal saline 250ml IV soln 250 ML IV SCH (03:02)
[2017-08-03 06:30] VITALS: BP 140/72
[2017-08-03] MEDS: lactobacillus rhamnosus 10,000 MMU CELLS/CAPSULE PO SCH ×2 (07:24→20:03)
[2017-08-03] MEDS: metoprolol tartrate 12.5mg (1/2 tablet) PO SCH (07:24)
[2017-08-03] MEDS: potassium Cl 20 mEq SR tablet PO PRN ×2 (07:24→20:28)
[2017-08-03] MEDS: rivaroxaban 20mg tablet PO SCH (07:24)
[2017-08-03] MEDS: docusate sod 100mg capsule PO SCH ×2 (07:24→20:04)
[2017-08-03 11:00] VITALS: BP 132/84
[2017-08-03 15:00] VITALS: BP 137/80
[2017-08-03] MEDS: ceFAZolin 1GM/D5W- ADD-VANTAGE 50 ML IV SCH (16:04)
[2017-08-03 19:00] VITALS: BP 135/81
[2017-08-03] MEDS: metoprolol tartrate 50mg tablet PO SCH (20:06)
[2017-08-03 23:00] VITALS: BP 130/81
[2017-08-04] MEDS: ceFAZolin 1GM/D5W- ADD-VANTAGE 50 ML IV SCH ×2 (00:17→08:00)
[2017-08-04] MEDS: potassium Cl 20 mEq SR tablet PO PRN (00:34)
[2017-08-04 03:00] VITALS: BP 143/85
[2017-08-04 04:32] LABS: BASOPHILS % (AUTO) 0.4 % (0-1); EOSINOPHILS # (AUTO) 0.2 X10'3 (0-0.9); EOSINOPHILS % (AUTO) 4.5 % (0-6); HEMATOCRIT 28.5 % (42.0-52.0); HEMOGLOBIN 10.2 g/dl (14.0-17.9); LYMPHOCYTES # (AUTO) 0.4 X10'3 (1.1-4.8); LYMPHOCYTES % (AUTO) 11.2 % (21-51); MEAN CORPUSCULAR HEMOGLOBIN 32.9 PG (27.0-31.0); MEAN CORPUSCULAR HGB CONC 35.7 % (33.0-36.5); MEAN CORPUSCULAR VOLUME 92.1 FL (78-98); MEAN PLATELET VOLUME 8.7 FL (7.4-10.4); MONOCYTES # (AUTO) 0.3 X10'3 (0-0.9); NEUTROPHILS # (AUTO) 2.8 X10'3 (1.8-7.7); NEUTROPHILS % (AUTO) 75.9 % (42-75); PLATELET COUNT 147 X10'3 (140-440); RED CELL DISTRIBUTION WIDTH 15.6 % (11.5-14.5); WHITE BLOOD COUNT 3.7 X10'3 (4.5-11.0)
[2017-08-04 04:46] LABS: ALANINE AMINOTRANSFERASE 62 U/L (12-78); ALBUMIN 2.2 G/DL (3.4-5.0); ALBUMIN/GLOBULIN RATIO 0.6 (1.1-1.5); ALKALINE PHOSPHATASE 95 IU/L (46-116); ANION GAP 6 (8-16); ASPARTATE AMINO TRANSFERASE 42 U/L (10-37); BILIRUBIN,TOTAL 0.7 MG/DL (0.1-1.0); BLOOD UREA NITROGEN 14 MG/DL (7-18); BUN/CREATININE RATIO 11.2 (5.4-32.0); CHLORIDE 101 MMOL/L (99-107); CREATININE 1.25 MG/DL (0.60-1.10); GLUCOSE 116 MG/DL (70-104); MAGNESIUM 1.8 MG/DL (1.5-2.4); PHOSPHORUS 2.7 MG/DL (2.3-4.5); POTASSIUM 3.8 MMOL/L (3.5-5.1); SODIUM 136 MMOL/L (135-145); TOTAL CARBON DIOXIDE 29.5 MMOL/L (24-32); TOTAL PROTEIN 5.9 G/DL (6.4-8.2); eGFR 57 ML/MIN
[2017-08-04 06:30] VITALS: BP 143/81
[2017-08-04] MEDS: lactobacillus rhamnosus 10,000 MMU CELLS/CAPSULE PO SCH (08:00)
[2017-08-04] MEDS: metoprolol tartrate 50mg tablet PO SCH (08:00)
[2017-08-04] MEDS: rivaroxaban 20mg tablet PO SCH (08:00)
[2017-08-04] MEDS: docusate sod 100mg capsule PO SCH (08:00)
[2017-08-04 11:00] VITALS: BP 125/79
[2017-08-04] MEDS ORDERED: METO50TA16 PO (13:17)
[2017-08-04] MEDS ORDERED: CEFA1VIA10 IV (13:32)
== END 2017-08-04 15:30 | DRG 314 ==
LOC: ER 12:33 → ED HOLD 15:03 → ICU 2S 17:23 → PCU 3S 07-31 17:10
PROVIDERS: ADMIT Internal Medicine Critical Care Medicine; ATTEND Internal Medicine Critical Care Medicine
DX: I95.9 Hypotension, unspecified (principal); G92 Toxic encephalopathy; I44.2 Atrioventricular block, complete; N17.9 Acute kidney failure, unspecified; E87.5 Hyperkalemia; Z95.1 Presence of aortocoronary bypass graft; A49.01 Methicillin susceptible Staphylococcus aureus infection, unspecified site; R50.9 Fever, unspecified; N18.9 Chronic kidney disease, unspecified; I48.2 Chronic atrial fibrillation; R00.1 Bradycardia, unspecified; I12.9 Hypertensive chronic kidney disease with stage 1 through stage 4 chronic kidney disease, or unspecified chronic kidney disease; I25.10 Atherosclerotic heart disease of native coronary artery without angina pectoris; I48.0 Paroxysmal atrial fibrillation; T50.905A Adverse effect of unspecified drugs, medicaments and biological substances, initial encounter; Z79.01 Long term (current) use of anticoagulants; Z79.82 Long term (current) use of aspirin; Z79.899 Other long term (current) drug therapy; Z87.891 Personal history of nicotine dependence; Y92.89 Other specified places as the place of occurrence of the external cause
CPT/HCPCS: 36415; 71045; 80053; 80202; 81001; 83605; 83735; 83880; 84100; 84132; 84484; 85025; 87040; 87070; 87077; 87186; 87502; 87503; 93005; 96374; 96375; 97116; 97161; 97530; 99291; 99292; A6212; A6213; A6250; C1758; J0690; J1265; J1815; J2250; J2274; J2543; J3010; J3370; J7030

== ENCOUNTER 2017-10-22 17:29 | Emergency (ER) | payer MEDICARE, BC ==
[~2017-10-22] VITALS: Ht 188 cm; Wt 119.0 kg
[~2017-10-22 17:29] MED LIST changes: +CEFA1VIA10 IV; -DOPamine/D5W 400mg/250ml bag IV ONE; +FURO80TA87 PO; -LISI40TA4 PO; +MAGN400C PO; -METO25TA6 PO; +METO50TA16 PO; -NORepinephrine 1 mg/ml inj IV ONE; +POTA10CA44 PO; +RIVA20TA PO; -sod chloride 0.9% 10ml flush syringe IV ONE
[2017-10-22] MEDS ORDERED: TETanus/Pertussis (Acell)/Diphther VAC/PF (Tdap-Adult) 0.5ml syringe IM ONE (17:40)
[2017-10-22] MEDS ORDERED: LIDOcaine 1% 30ml preserv. free vial IJ ONE (17:40)
[2017-10-22 18:03] LABS: BASOPHILS % (AUTO) 0.2 % (0-1); EOSINOPHILS # (AUTO) 0.1 X10'3 (0-0.9); EOSINOPHILS % (AUTO) 0.6 % (0-6); HEMATOCRIT 36.2 % (42.0-52.0); HEMOGLOBIN 12.5 g/dl (14.0-17.9); LYMPHOCYTES # (AUTO) 0.2 X10'3 (1.1-4.8); LYMPHOCYTES % (AUTO) 1.5 % (21-51); MEAN CORPUSCULAR HEMOGLOBIN 30.1 PG (27.0-31.0); MEAN CORPUSCULAR HGB CONC 34.6 % (33.0-36.5); MEAN PLATELET VOLUME 8.4 FL (7.4-10.4); MONOCYTES # (AUTO) 0.3 X10'3 (0-0.9); MONOCYTES % (AUTO) 2.2 % (2-12); NEUTROPHILS % (AUTO) 95.5 % (42-75); PLATELET COUNT 231 X10'3 (140-440); RED BLOOD COUNT 4.16 X10'6 (4.70-6.10); WHITE BLOOD COUNT 11.5 X10'3 (4.5-11.0)
[2017-10-22 18:14] LABS: INR 1.4 INR; PROTHROMBIN TIME 13.9 SECONDS (9.0-12.0)
[2017-10-22 18:20] LABS: ALANINE AMINOTRANSFERASE 312 U/L (12-78); ALBUMIN 3.1 G/DL (3.4-5.0); ALBUMIN/GLOBULIN RATIO 0.7 (1.1-1.5); ALKALINE PHOSPHATASE 671 IU/L (46-116); ANION GAP 10 (8-16); ASPARTATE AMINO TRANSFERASE 233 U/L (10-37); BILIRUBIN,TOTAL 1.4 MG/DL (0.1-1.0); BLOOD UREA NITROGEN 22 MG/DL (7-18); BUN/CREATININE RATIO 15.1 (5.4-32.0); CALCIUM 8.9 MG/DL (8.5-10.1); CHLORIDE 92 MMOL/L (99-107); CREATININE 1.46 MG/DL (0.60-1.10); GLUCOSE 152 MG/DL (70-104); SODIUM 130 MMOL/L (135-145); TOTAL CARBON DIOXIDE 27.6 MMOL/L (24-32); TOTAL PROTEIN 7.3 G/DL (6.4-8.2); eGFR 48 ML/MIN
[2017-10-22 18:29] LABS: MAGNESIUM 1.4 MG/DL (1.5-2.4)
[2017-10-22 18:45] VITALS: BP 132/85
== END 2017-10-22 19:30 | disposition home or self-care (01) ==
LOC: ER 17:30
DX: S06.0X0A Concussion without loss of consciousness, initial encounter (principal); S01.01XA Laceration without foreign body of scalp, initial encounter; S49.92XA Unspecified injury of left shoulder and upper arm, initial encounter; I48.91 Unspecified atrial fibrillation; I25.10 Atherosclerotic heart disease of native coronary artery without angina pectoris; I10 Essential (primary) hypertension; Z98.890 Other specified postprocedural states; Z95.1 Presence of aortocoronary bypass graft; Z79.82 Long term (current) use of aspirin; Z79.899 Other long term (current) drug therapy; W18.39XA Other fall on same level, initial encounter; Y93.89 Activity, other specified; Y92.89 Other specified places as the place of occurrence of the external cause; Y99.8 Other external cause status
CPT/HCPCS: 12002; 36415; 70450; 71045; 72125; 80053; 83735; 83880; 84484; 85025; 85610; 90471; 90715; 93005; 99285; A6255; A6449; J3490